=== PATIENT | female | born 1990 | race Caucasian/White ===

== ENCOUNTER 2019-11-25 10:37 | Emergency (ER) | payer OTHER, SELFPAY ==
[2019-11-25 10:40] VITALS: BP 140/89; RESP 16; TEMP 37.3; O2SAT 100; BMI 24.3
[2019-11-25 10:52] VITALS: RESP 16
--- NOTE | 2019-11-25 10:57 | ED_ITS ---
HPI - Dental/Oral General: Chief complaint: Dental/Oral Stated complaint: DENTAL PAIN Time Seen by Provider: 11/25/19 10:48 Source: patient Mode of arrival: ambulatory Limitations: no limitations History of Present Illness: HPI Narrative: Patient comes in with left lower molar pain for the last 4 days. Patient has some noticeable swelling to the left lower jaw. Patient appears well. Patient has been trying some [id number]-[id number] remedies without much relief in the discomfort. Teeth map: 1. tenderness, decay 2. decay Review of Systems General: Reports: 10 or more systems reviewed and unremarkable except in HPI and below ENMT: Reports: dental pain [facility] ED PFSH: Social History Smoking and tobacco status: current every day smoker Physical Exam Const: COMMON NORMALS: no apparent distress and oriented x3 GENERAL APPEARANCE: cooperative HENMT: COMMON NORMALS: external ears normal, EAC's normal, TM's normal bilaterally and external nose normal HEAD & SCALP: normal to inspection and other (mild facial swelling to left lower jaw, dental tenderness, various caries) NOSE: external nose normal GENERAL EAR: hearing not grossly impaired EXTERNAL EAR: Yes external ears normal EXTERNAL AUDITORY CANAL: EAC's normal TYMPANIC MEMBRANE: TM's normal bilaterally MOUTH: oral and palatal mucosa normal THROAT: posterior oropharynx normal Eye: COMMON NORMALS: PERRL and EOMs intact bilaterally PUPIL: Yes PERRL Neck/C-Spine: COMMON NORMALS: full ROM and no lymphadenopathy Lymph: LYMPHATIC: no lymphedema noted Chest: COMMONS NORMALS: inspection of chest normal and palpation of chest normal Resp: COMMON NORMALS: normal respiratory effort and clear to auscultation bilaterally AUSCULTATION: clear to auscultation bilaterally Cardio: COMMON NORMALS: regular rate and regular rhythm RATE: regular rate RHYTHM: regular rhythm GI: COMMON NORMALS: normal to inspection, nondistended, normoactive bowel sounds and non-tender : COMMON NORMALS: Yes no CVA tenderness BLADDER/KIDNEY EXAM: Yes no CVA tenderness Back/Pelvis: COMMON NORMALS: no CVA tenderness and thoracic and lumbar spine normal to inspection Extremity: COMMON NORMALS: normal to inspection GENERAL: No edema Neuro: COMMON NORMALS: oriented x3, moves all extremities and no focal motor deficits Psych: COMMON NORMALS: mental status grossly normal and cooperative Skin: COMMON NORMALS: no rashes or lesions noted GENERAL SKIN EXAM: no rashes or lesions noted Procedures Nerve Block Nerve Block 1: Local Anesthetic: bupivacaine 0.5% Amount of anesthesia used (mL): 4 Side: left Intraoral Nerve Block: inferior alveolar Patient Tolerated Procedure: well Complications: none Course Vital Signs: Vital signs: Vital Signs Temperature 99.2 F 11/25/19 10:40 Pulse Rate 16 L 11/25/19 11:25 Respiratory Rate 16 11/25/19 10:52 Blood Pressure 140/89 11/25/19 10:40 Pulse Oximetry 100 11/25/19 10:40 MDM - Dental/Oral MDM Narrative: Medical decision making narrative: Patient comes in today with left lower jaw pain. Exam notes some swelling to the facial area of the left lower jaw. Dental tenderness is noted to the molar on the left lower jaw. Patient has some decay in the tooth that is tender and also noticeable decay and tooth just above it. Respirations are even lungs are clear to auscultation. No swelling of the pharynx is noted. No swelling of sublingual area is noted. Differential diagnosis includes dental abscess, dental pain, dental caries. Reviewed exam with patient recommended treatment with bupivacaine dental oral block. Recommend further treatment with antibiotics and medication for pain. Patient reports understanding and agreed to treatment plan. Discharge Plan Discharge Patient Disposition: Home, Self-Care Clinical Impression: Dental abscess Condition: Stable Prescriptions: New amoxicillin 500 mg tablet 1,000 mg PO BID Qty: 40 RF: 0 hydrocodone-acetaminophen 5-325 mg tablet 1 tab PO Q8H PRN (Reason: Pain (Scale Score 7-10)) Qty: 7 RF: 0 ibuprofen 800 mg tablet 800 mg PO Q8H PRN (Reason: pain) Qty: 30 RF: 0 Discharge Orders: Discharge Order (Routine); Ordered 11/25/19 Ordered By: Parrish Iglesias Discharge Diet: Advance as tolerated Discharge Activity: Increase activity as tolerated Patient Instructions: Toothache (ED) Activity Restrictions/Additional Instructions: Good oral care Drink plenty of water with medications Activity as tolerated Follow-up with primary care in one week Follow-up with Dentist for primary treatment Return to ER for difficulty swallowing or respiratory difficulty Discharge Date/Time: 11/25/19 11:25 Coding Level of Care Code ED Plant Taxonomy Teacher for Kyleg Fwd Exam Comprehensive
[2019-11-25 11:25] VITALS: PULSE 16
== END 2019-11-25 11:25 | disposition home or self-care (01) ==
PROVIDERS: Emergency Provider Nurse Practitioner Family
DX: K04.7 Periapical abscess without sinus (principal); F17.210 Nicotine dependence, cigarettes, uncomplicated
CPT/HCPCS: 12345; 64450; 99281; 99282; J3490

== ENCOUNTER 2020-03-12 16:09 | Emergency (ER) | payer OTHER, SELFPAY ==
[2020-03-12 16:30] VITALS: BP 127/86; PULSE 87; RESP 18; TEMP 36.8; O2SAT 100; BMI 26.6
--- NOTE | 2020-03-12 17:22 | XRR_ITS ---
PROCEDURE INFORMATION: Exam: XR Left Foot Complete Exam date and time: 03/12/2020 5:40 PM Age: 29 years old Clinical indication: Pain and injury or trauma; Injury history: Hit foot on piece of furnture; Initial encounter; Blunt trauma; Left; Injury details: Pain above toes TECHNIQUE: Imaging protocol: XR Left foot. Views: 3 or more views. COMPARISON: No relevant prior studies available. FINDINGS: Bones/joints: Acute comminuted nondisplaced fracture involving the 5th proximal phalanx. Soft tissues: Mild soft tissue swelling. XR/XR foot LT min 3V* [id number] IMPRESSION: Acute comminuted nondisplaced fracture involving the 5th proximal phalanx.
--- NOTE | 2020-03-12 17:22 | ED_ITS ---
HPI - Extremity Injury (Lower) General: Chief Complaint: Extremity Injury, Lower Stated Complaint: L foot injury Time Seen by Provider: 03/12/20 17:18 Source: patient Mode of arrival: ambulatory Limitations: no limitations History of Present Illness: HPI Narrative: Patient is a 29-year-old female who presents to ED today with a left foot injury that she sustained after accident ally jamming the foot into an object 2 days ago. complaint: foot injury Onset (ago): day(s) Injury: Left: foot Type of Injury: blunt Place: home Severity: moderate Relieving factors: nothing Exacerbating factors: weight bearing, movement and palpation Associated symptoms: Reports no associated symptoms Other symptoms: none Review of Systems Musc: Reports: extremity pain (L foot pain) Neuro: Denies: numbness in extremities or sensory changes PFSH ED PFSH: Social History Smoking and tobacco status: current every day smoker Physical Exam Const: COMMON NORMALS: no acute distress, average body habitus, patient oriented x3, no limitations, healthy appearing, alert and well nourished Extremity: GENERAL: Yes normal exam except as noted OTHER: TTP distal L foot and digits 2-5; ecchymosis present; no deformity, sensory intact, DP/PT pulses intact, cap refill normal Neuro: COMMON NORMALS: patient oriented x3, moves all extremities, no focal motor deficits and no sensory deficits noted SENSORIUM/ORIENTATION: Yes alert GAIT: Yes Other gait observations present (limping gait) Course Vital Signs: Vital signs: Vital Signs Temperature 98.2 F 03/12/20 16:30 Pulse Rate 85 03/12/20 18:12 Respiratory Rate 18 03/12/20 18:12 Blood Pressure 142/75 03/12/20 18:12 Pulse Oximetry 98 03/12/20 18:12 MDM - Extremity Injury (Lower) Imaging Data^: L foot XR: My impression: non-displaced fx to proximal phalanx of L 5th digit Discharge Plan Discharge Patient Disposition: Home, Self-Care Clinical Impression: Closed fracture of proximal phalanx of toe of left foot Condition: Stable Prescriptions: New Tylenol-Codeine #3 300-30 mg tablet 1 tab PO Q6H PRN (Reason: pain) Qty: 10 RF: 0 No Action No Known Home Medications RF: 0 Discharge Orders: Discharge Order (Routine); Ordered 06/23/20 Ordered By: Tejal Wylie Referrals: Juanpablo Ayoub DPM [Physician] - Patient Instructions: Fractures - Phalanx (Toe), Toe Fracture (ED) Activity Restrictions/Additional Instructions: Case management should contact you shortly to set you up with podiatry for follow-up of your toe fracture. Make sure you are wearing a hard soled shoe at all times for support. Stand Alone Forms: Work/School Release Coding Level of Care Code ED Research Quality Assurance Analyst for Chg Fwd Exam Expanded Problem Focused
[2020-03-12 18:12] VITALS: BP 142/75; PULSE 85; RESP 18; O2SAT 98
--- NOTE | 2020-03-13 12:05 | DCPLANNER ---
energy project manager had message to schedule a follow up appointment for patient with ortho. energy project manager called the ortho clinic, spoke with Pat, gave clinic patients information. energy project manager was told that patients information would be printed and reviewed. Clinic will call caseworker intake and patient with appointment information.
--- NOTE | 2020-03-15 08:15 | DCPLANNER ---
Patient has a follow up appointment scheduled for Wednesday, March 18, [address] at 9:[address] Eid. Clinic will call patient with appointment information.
--- NOTE | 2020-03-20 14:54 | DCPLANNER ---
Patient did not attend appointment scheduled for 03.18.20 with ortho.
== END 2020-03-12 18:27 | disposition home or self-care (01) ==
PROVIDERS: Emergency Provider Physician Assistant
DX: S92.515A Nondisplaced fracture of proximal phalanx of left lesser toe(s), initial encounter for closed fracture (principal); W22.8XXA Striking against or struck by other objects, initial encounter; F17.210 Nicotine dependence, cigarettes, uncomplicated
CPT/HCPCS: 12345; 73630; 99281; 99283

== ENCOUNTER 2020-09-27 20:11 | Emergency (ER) | payer BC, SELFPAY ==
[2020-09-27 20:33] VITALS: BP 125/78; PULSE 80; RESP 18; TEMP 36.8; O2SAT 98; BMI 26.6
--- NOTE | 2020-09-27 23:41 | W.ED.BACK ---
HPI - Back Pain/Injury General: Chief Complaint: Back Pain/Injury Stated Complaint: lower back pain Time Seen by Provider: 09/27/20 23:41 Source: patient Mode of arrival: ambulatory Limitations: no limitations History of Present Illness: HPI Narrative: 30-year-old female comes in with low back pain. Patient reports that she does a lot of lifting at work. She reports that the other day she lifted something really heavy and since then she has had increasing back pain to the low back. Patient states she again lifted something heavy today and felt more pain and discomfort. Patient comes in for evaluation of discomfort. Patient appears well. Patient appears in mild to moderate pain. MD elicited complaint: back injury Review of Systems General: Reports: 10 or more systems reviewed and unremarkable except in HPI and below Musc: Reports: back pain PFSH ED PFSH: Social History Smoking and tobacco status: current every day smoker Physical Exam Const: COMMON NORMALS: no acute distress and patient oriented x3 GENERAL APPEARANCE: cooperative HENMT: COMMON NORMALS: normocephalic and Normal external nose present HEAD & SCALP: normal to inspection and normocephalic NOSE: Normal external nose present MOUTH: Normal oral and palatal mucosa present Eye: GENERAL EYE: appearance normal, both eyes and all related structures Neck/C-Spine: COMMON NORMALS: full ROM Chest: COMMONS NORMALS: normal inspection of the chest Resp: COMMON NORMALS: normal respiratory effort EFFORT & INSPECTION: Yes able to speak in complete sentences Cardio: COMMON NORMALS: regular rate and regular rhythm RATE: regular rate RHYTHM: regular rhythm GI: COMMON NORMALS: non-tender : COMMON NORMALS: Yes no CVA tenderness BLADDER/KIDNEY EXAM: Yes no CVA tenderness Back/Pelvis: COMMON NORMALS: no CVA tenderness LUMBAR SPINE/LOWER BACK: Yes lumbar ROM normal, Yes lumbar spinal tenderness (L5-S1.) and Yes paraspinal muscle tenderness Lumbar paraspinal muscle tenderness: left Extremity: COMMON NORMALS: normal to inspection Neuro: COMMON NORMALS: patient oriented x3 and moves all extremities Psych: COMMON NORMALS: mental status grossly normal and cooperative Skin: COMMON NORMALS: no rashes or lesions noted GENERAL SKIN EXAM: no rashes or lesions noted Course Vital Signs: Vital signs: Vital Signs Temperature 98.2 F 09/27/20 20:33 Pulse Rate 80 09/27/20 20:33 Respiratory Rate 18 09/27/20 20:33 Blood Pressure 125/78 09/27/20 20:33 Pulse Oximetry 98 09/27/20 20:33 MDM - Back Pain/Injury MDM Narrative: Medical decision making narrative: 30-year-old female comes in with low back pain. Patient reports lifting a lot at work. Patient reports straining on a heavy object today for follow-up. On exam patient appears well. Patient appears no acute distress. Negative leg lift test. Skin is warm and dry. Some vertebral tenderness is noted at L5-S1. Muscle tenderness is noted on the left lower lumbar area. Differential diagnosis includes lumbar strain, intervertebral disc disease, facet arthropathy. Patient denies any changes in bowel or bladder habits. Patient denies any fever. No sign of serious or significant injury is noted at this time. Reviewed exam with patient recommended treatment to include activity as tolerated, gentle stretching and range of motion exercises and medication for pain. Patient reported understanding of care plan and need for follow-up or return to the ER. Discharge Plan Discharge Patient Disposition: Home Clinical Impression: Strain of lumbar region Qualifiers: Encounter type: initial encounter Qualified Code(s): S39.012A - Strain of muscle, fascia and tendon of lower back, initial encounter Condition: Stable Prescriptions: New diclofenac sodium 75 mg tablet,delayed release (DR/EC) 75 mg PO BID Qty: 20 RF: 0 [place] 5-325 mg tablet 1 tab PO Q8H PRN (Reason: pain) Qty: 10 RF: 0 Discontinued acetaminophen-codeine [Tylenol-Codeine #3] 300-30 mg tablet 1 tab PO Q6H PRN (Reason: pain) Qty: 10 RF: 0 Discharge Orders: Discharge ED (Routine); Ordered 09/27/20 Ordered By: Parrish Iglesias Discharge Diet: Usual diet Discharge Activity: Increase activity as tolerated Patient Instructions: Low Back Strain (ED) Activity Restrictions/Additional Instructions: Activity as tolerated. Gentle stretching and range of motion exercises. Drink plenty of water with medication. Do not use hydrocodone around heavy equipment or while driving for at least 8 hours after taking. Follow-up with primary care in 1 week for persistent symptoms. Return to the emergency room for new concerns. Stand Alone Forms: Work/School Release Coding Level of Care Code ED Embroiderer Hand for Garrett Fwtrini Exam Comprehensive
[2020-09-27] MEDS: ketorolac 30 mg/mL INJ IM (23:53)
[2020-09-27] MEDS: orphenadrine 30 mg/mL Inj 2 mL 60 MG IM (23:53)
[2020-09-28 00:32] VITALS: BP 117/72; PULSE 89; RESP 16; O2SAT 97
== END 2020-09-28 00:29 | disposition home or self-care (01) ==
PROVIDERS: Emergency Provider Nurse Practitioner Family
DX: S39.012A Strain of muscle, fascia and tendon of lower back, initial encounter (principal); F17.210 Nicotine dependence, cigarettes, uncomplicated; X50.0XXA Overexertion from strenuous movement or load, initial encounter
CPT/HCPCS: 12345; 96372; 99281; 99283; J1885; J2360

== ENCOUNTER 2021-01-27 01:35 | Emergency (ER) | payer BC, SELFPAY ==
[2021-01-27 01:43] VITALS: BP 135/84; PULSE 74; RESP 17; TEMP 36.7; O2SAT 99; BMI 25.0
--- NOTE | 2021-01-27 02:11 | W.ED.EAR ---
HPI - Ear Problem General: Chief complaint: Ear Stated complaint: ear pain Time Seen by Provider: 01/27/21 02:01 History of Present Illness: HPI Narrative: Right ear discomfort x1 week. MD Complaint: ear pain and decreased hearing Location: right ear Duration: constant Severity: mild Relieving factors: nothing Associated symptoms: Reports no associated symptoms and ear or mastoid pain; Denies fever(s) or headache(s) Review of Systems Const: Denies: fever(s), chills or body aches Eyes: Denies: change in vision or blurry vision ENMT: Reports: ear or mastoid pain and change in hearing; Denies: throat pain, ear discharge or nasal congestion Card: Denies: chest pain or dyspnea on exertion Resp: Denies: dyspnea, productive cough or non-productive cough GI: Denies: abdominal pain, nausea or vomiting Musc: Denies: extremity pain Skin/Breast: Denies: rash Neuro: Denies: headache(s) Psych: Denies: anxiety or depression Joaquín/Lymph: Denies: easy bruising PFSH ED PFSH: Social History Smoking and tobacco status: current every day smoker Physical Exam Const: COMMON NORMALS: no acute distress HENMT: COMMON NORMALS: EAC's normal and Normal external nose present NOSE: Normal external nose present EXTERNAL AUDITORY CANAL: EAC's normal TYMPANIC MEMBRANE: TM normal on the left and TM abnormal TM laterality: right Details: effusion MOUTH: Normal oral and palatal mucosa present THROAT: posterior oropharynx normal Resp: COMMON NORMALS: normal respiratory effort Psych: COMMON NORMALS: mental status grossly normal Course Vital Signs: Vital signs: Vital Signs Temperature 98.1 F 01/27/21 01:43 Pulse Rate 74 01/27/21 01:43 Respiratory Rate 17 01/27/21 01:43 Blood Pressure 135/84 01/27/21 01:43 Pulse Oximetry 99 01/27/21 01:43 Discharge Plan Discharge Patient Disposition: Home Clinical Impression: Acute effusion of right ear Condition: Stable Prescriptions: New prednisone 20 mg tablet 20 mg PO DAILY Qty: 7 RF: 0 cephalexin 500 mg capsule 500 mg PO Q8H 7 Days Qty: 21 RF: 0 No Action diclofenac sodium 75 mg tablet,delayed release (DR/EC) 75 mg PO BID Qty: 20 RF: 0 [place] 5-325 mg tablet 1 tab PO Q8H PRN (Reason: pain) Qty: 10 RF: 0 Discharge Orders: Discharge ED (Routine); Ordered 01/27/21 Ordered By: Delta Pulido Discharge Diet: Usual diet Discharge Activity: Resume usual activity Patient Instructions: Earache (ED) Activity Restrictions/Additional Instructions: Follow-up with medical provider as directed. Take medications as prescribed. Return to the ER or your medical provider if condition worsens. Please read and understand discharge instructions. If any questions ask please. Stand Alone Forms: Work/School Release Coding Level of Care Code ED Electric Golf Cart Repairer for Garrett Bah
[2021-01-27 02:35] VITALS: BP 135/84; PULSE 74; RESP 17; O2SAT 99
== END 2021-01-27 02:30 | disposition home or self-care (01) ==
PROVIDERS: Emergency Provider Nurse Practitioner Family
DX: H92.01 Otalgia, right ear (principal); F17.210 Nicotine dependence, cigarettes, uncomplicated
CPT/HCPCS: 99282

== ENCOUNTER 2021-07-26 14:03 | Emergency (ER) | payer BC, SELFPAY ==
[2021-07-26 14:42] VITALS: BP 128/75; PULSE 92; RESP 16; TEMP 36.7; O2SAT 98
--- NOTE | 2021-07-26 16:09 | ED_ITS ---
HPI - General Adult General: Chief complaint: Urogenital-Female Stated complaint: WANTS TESTED FOR POSS STD'S Time Seen by Provider: 07/26/21 14:25 History of Present Illness: HPI narrative: Patient is a 31-year-old female with no significant past medical history presenting to the emergency request to be tested for STDs. Patient tells me that her significant other recently cheated on me and she wanted to get tested. Patient denies any new vaginal discharge, groin lesion, fever/chills, malaise, weakness, or other symptoms. Review of Systems Narrative: Constitutional: No fever, no chills. HEENT: No vision changes CV: No chest pain, no palpitations PULM: no cough, no dyspnea. GI: No abdominal pain, no N/V/D. : No dysuria MSKEL: No muscle pain SKIN: No new rashes, no lesions. NEURO: No headache, no focal weakness. HEME: No visible bruises PSYCH: Normal mood PFSH ED PFSH: Social History Smoking and tobacco status: current every day smoker Physical Exam Narrative: EXAM NARRATIVE: Head: Atraumatic Eyes: PERRL, conjunctiva without injection ENT: Mucous membrane moist NECK: Supple, ROM intact LUNGS: LCTAB, no crackles/rhonchi CV: RRR ABDOMEN: Soft, nontender in all quadrants EXTREMITY: Normal ROM SKIN: No rash or erythema NEURO: Awake and alert, no focal motor deficits PSYCH: Normal mood and affect Course Vital Signs: Vital signs: Vital Signs Temperature 98.1 F 07/26/21 14:42 Pulse Rate 92 07/26/21 14:42 Respiratory Rate 16 07/26/21 14:42 Blood Pressure 128/75 07/26/21 14:42 Pulse Oximetry 98 07/26/21 14:42 MDM - General Adult MDM Narrative: Medical decision making narrative: 31-year-old female presenting to the emergency room with request to get STD testing. Patient has no focal symptoms at this time. Hemodynamically stable. Patient declined exam today. Work-up: Acute hepatitis panel, HIV antigen/antibody/viral titer, RPR, GC chlamydia from urine I have counseled patient that even though these tests remain negative, if she has any symptoms she needs further testing as no test is 100% accurate. Patient instructed follow-up with these tests on the patient portal in the next few days. Disposition: Discharge. Patient counseled regarding diagnostic impression, treatment plan. Patient given ED strict return precautions to return for continuation, worsening, or development of new symptoms. Instructed to f/u w/ PCP regarding symptoms today. Patient verbalized understanding. Lab Data: Labs: Lab Results 07/26/21 07/26/21 07/26/21 16:43 16:43 16:43 RPR Nonreactive (Nonreactive) Hepatitis A IgM Ab Non-reactive (Nonreactive) Hep Bs Antigen Non-reactive (Nonreactive) Hep B Core IgM Ab Non-reactive (Nonreactive) Hepatitis C Antibo dy Non-reactive (Nonreactive) HIV 1&2 Ab & HIV 1 Ag Non-reactive (Non-Reactiv) HIV 1&2 Antibody Non-reactive (Non-Reactiv) Discharge Plan Discharge Patient Disposition: Home Clinical Impression: Adult general medical exam Condition: Stable Prescriptions: No Action diclofenac sodium 75 mg tablet,delayed release (DR/EC) 75 mg PO BID Qty: 20 RF: 0 [place] 5-325 mg tablet 1 tab PO Q8H PRN (Reason: pain) Qty: 10 RF: 0 prednisone 20 mg tablet 20 mg PO DAILY Qty: 7 RF: 0 Discharge Orders: Discharge ED (Routine); Ordered 07/26/21 Ordered By: Ayesha Zuluaga Discharge Diet: Advance as tolerated Discharge Activity: Resume usual activity Patient Instructions: Safe Sex Practices (ED) Activity Restrictions/Additional Instructions: Come back to the emergency room you have any worsening symptoms, if you have any new or concerning complaints. Keep in mind that none of the tests are 100% sensitive. You may need to be retested if you have any new symptoms. Coding Level of Care Code ED Electromechanical Technician for Garrett Bah
[2021-07-26 17:32] LABS: Hepatitis A Antibody IgM Non-Reactive (Nonreactive); Hepatitis B Core IgM Non-Reactive (Nonreactive); Hepatitis B Surface Antigen Non-Reactive (Nonreactive); Hepatitis C Virus Antibody Non-Reactive (Nonreactive)
[2021-07-26 17:35] LABS: Rapid Plasma Reagin Syphilis Nonreactive (Nonreactive)
[2021-07-26 17:46] LABS: HIV 1 & 2 Antibody Non-Reactive (Non-Reactiv); HIV 1 & 2 Antigen Non-Reactive (Non-Reactiv)
[2021-07-28 22:37] LABS: HIV RNA (CPY/ML) <1.30 NOT DETECTED (NOT DETECTED); HIV RNA LOG <20 NOT DETECTED copies/mL (NOT DETECTED)
== END 2021-07-26 16:46 | disposition home or self-care (01) ==
PROVIDERS: Emergency Provider Emergency Medicine
DX: Z03.89 Encounter for observation for other suspected diseases and conditions ruled out (principal); F17.210 Nicotine dependence, cigarettes, uncomplicated
CPT/HCPCS: 36415; 80074; 86592; 87491; 87536; 87591; 87661; 87806; 99283